=== PATIENT | female | born 1975 | race Caucasian/White ===

== ENCOUNTER 2019-12-26 21:14 | Inpatient (IN) | payer OTHER ==
[~2019-12-26] VITALS: Ht 160 cm; Wt 42.6 kg
[2019-12-26 21:14] VITALS: BP_SYST 98
[2019-12-26] MEDS ORDERED: HYDR-4274 PO (22:01)
[2019-12-26] MEDS ORDERED: OMEP20CA11 PO (22:01)
[2019-12-26] MEDS ORDERED: DOCU-144 PO (22:01)
[2019-12-26] MEDS ORDERED: ASCO500T20 PO (22:01)
[2019-12-26] MEDS ORDERED: MULT-1100 PO (22:01)
[2019-12-26] MEDS ORDERED: PHEN30TA41 PO (22:01)
[2019-12-26] MEDS ORDERED: ACET-2165 PO (22:01)
[2019-12-26] MEDS ORDERED: FERR-69 PO (22:01)
[2019-12-26] MEDS ORDERED: LISI-600 PO (22:01)
[2019-12-26] MEDS ORDERED: ALBMDI INH (22:01)
[2019-12-26] MEDS ORDERED: NA P133E41 RC (22:01)
[2019-12-26] MEDS ORDERED: VITD400 PO (22:01)
[2019-12-26] MEDS ORDERED: ATII2 INJ (22:01)
[2019-12-26] MEDS ORDERED: LORA1TAB PO (22:01)
[2019-12-26] MEDS ORDERED: OLAN5TAB26 PO (22:01)
[2019-12-26] MEDS ORDERED: PARO-41 PO (22:01)
[2019-12-26 22:07] LABS: BASOPHILS # (AUTO) 0.1 K/uL (0.0-0.2); BASOPHILS % (AUTO) 1.2 % (0.0-2.0); EOSINOPHILS # (AUTO) 0.2 K/uL (0.0-0.4); EOSINOPHILS % (AUTO) 3.1 % (0.0-4.0); HEMATOCRIT 33.5 % (36-48); HEMOGLOBIN 11.5 g/dL (12.0-16.0); LYMPHOCYTES # (AUTO) 1.9 K/uL (1.0-5.5); LYMPHOCYTES % (AUTO) 34.9 % (20.5-51.5); MEAN CORPUSCULAR HEMOGLOBIN 33 pg (27-31); MEAN CORPUSCULAR HGB CONC 34 % (32-36); MEAN CORPUSCULAR VOLUME 96 fL (79.0-98.0); MONOCYTES # (AUTO) 0.5 K/uL (0.0-1.0); MONOCYTES % (AUTO) 9.9 % (1.7-9.3); NEUTROPHILS # (AUTO) 2.7 K/uL (1.8-7.7); NEUTROPHILS % (AUTO) 50.9 % (40.0-70.0); PLATELET COUNT (AUTO) 332 K/uL (130-430); RED BLOOD CELL COUNT(AUTO) 3.48 MIL/uL (4.2-6.2); RED CELL DISTRIBUTION WIDTH 15.6 % (9.0-15.0); WHITE BLOOD COUNT (AUTO) 5.4 K/uL (4.8-10.8)
[2019-12-26 22:18] LABS: ANION GAP 4 (5-15); CALCIUM 7.9 mg/dL (8.4-11.0); CHLORIDE 106 mmol/L (98-107); CREATININE 0.59 mg/dL (0.55-1.30); GLUCOSE 106 mg/dL (70-99); POTASSIUM 3.4 mmol/L (3.5-5.1); SODIUM SERUM 141 mmol/L (136-145); UREA NITROGEN, BLOOD 20 mg/dL (8-21)
[2019-12-26 22:19] LABS: GFR AFRICAN AMERICAN 142 mL/min (>90)
[2019-12-26 22:59] LABS: ALANINE AMINOTRANSFERASE 26 U/L (12-78); ASPARTATE AMINOTRANSFERASE 22 U/L (10-37)
[2019-12-26 23:00] LABS: ACETAMINOPHEN 5 ug/mL (1-30); ALBUMIN 2.6 g/dL (3.4-4.8); ALCOHOL, BLOOD < 3 mg/dL (<10)
[2019-12-26 23:11] LABS: BILIRUBIN,URINE NEGATIVE (NEGATIVE); BLOOD, URINE NEGATIVE (NEGATIVE); CLARITY/URINE CLEAR (CLEAR); COLOR,URINE YELLOW (YELLOW); GLUCOSE,URINE NEGATIVE (NEGATIVE); KETONES,URINE NEGATIVE (NEGATIVE); LEUKOCYTE ESTERASE ,URINE NEGATIVE (NEGATIVE); NITRITE, URINE NEGATIVE (NEGATIVE); PH,URINE 5.5 (5.0-8.0); PROTEIN URINE NEGATIVE (NEGATIVE); UROBILINOGEN,URINE 0.2 (0.2-1.0)
[2019-12-26 23:14] LABS: TOTAL BILIRUBIN 0.2 mg/dL (0.0-1.0)
[2019-12-26 23:32] LABS: BARBITURATE, URINE POSITIVE (NEG <=200); BENZODIAZEPINE, URINE POSITIVE (NEG <=150); CANNABINOID, URINE NEGATIVE (NEG <=50); COCAINE, URINE NEGATIVE (NEG <=150); METHAMPHETAMINES SCREEN,URINE NEGATIVE (NEG <=500); OPIATE, URINE POSITIVE (NEG <=100); PHENCYCLIDINE SCREEN,URINE NEGATIVE (NEG <=25); UR TRICYCLIC ANTIDEPRESSANTS NEGATIVE (NEG <=300); URINE AMPHETAMINE NEGATIVE (NEG <=500); URINE METHADONE NEGATIVE (NEG <=200); URINE OXYCODONE SCREEN NEGATIVE (NEG <=100); URINE PROPOXYPHENE SCREEN NEGATIVE (NEG <=300)
[2019-12-27] MEDS ORDERED: DIPHENHYDRAMINE INJ 50 MG/ML VIAL IM ONE (12:00)
[2019-12-27] MEDS ORDERED: LORazepam 2 MG/ML VIAL IM ONE ×2 (12:00→20:00)
[2019-12-28] MEDS ORDERED: LORazepam 2 MG/ML VIAL IV PRN (13:30)
[2019-12-28] MEDS ORDERED: ACETAMINOPHEN 325 MG TABLET PO PRN (13:30)
[2019-12-28] MEDS ORDERED: ALBUTEROL SULFATE 0.083% 2.5 MG/3 ML VIAL.NEB INH PRN (13:30)
[2019-12-28] MEDS ORDERED: SODIUM PHOSPHATE,MONO-DIBASIC 133 ML ENEMA RC PRN (13:30)
[2019-12-28] MEDS ORDERED: PHENobarbital 30 MG TABLET PO PRN (13:30)
[2019-12-28 13:58] VITALS: BP_SYST 120
[2019-12-28 14:54] VITALS: BP_SYST 120
[2019-12-28] MEDS: LORazepam 2 MG/ML VIAL IV PRN ×2 (16:53→20:00)
[2019-12-28 20:00] VITALS: BP_SYST 97
[2019-12-28] MEDS: DOCUSATE SODIUM 100 MG CAPSULE PO SCH (20:00)
[2019-12-28] MEDS: HYDROcodone/ACETAMIN 10-325 MG TAB PO PRN (20:06)
[2019-12-28] MEDS ORDERED: OLANZapine 5 MG TABLET PO SCH (21:00)
[2019-12-29] MEDS: ONDANSETRON HCL 4 MG/2 ML VIAL IVP PRN ×3 (00:58→18:30)
[2019-12-29] MEDS: LORazepam 2 MG/ML VIAL IV PRN ×5 (00:58→21:11)
[2019-12-29] MEDS: HYDROcodone/ACETAMIN 10-325 MG TAB PO PRN ×3 (02:15→14:27)
[2019-12-29 04:00] VITALS: BP_SYST 114
[2019-12-29 06:41] LABS: BASOPHILS # (AUTO) 0.1 K/uL (0.0-0.2); BASOPHILS % (AUTO) 1.1 % (0.0-2.0); EOSINOPHILS # (AUTO) 0.1 K/uL (0.0-0.4); EOSINOPHILS % (AUTO) 2.4 % (0.0-4.0); HEMATOCRIT 33.6 % (36-48); HEMOGLOBIN 11.4 g/dL (12.0-16.0); LYMPHOCYTES # (AUTO) 1.9 K/uL (1.0-5.5); LYMPHOCYTES % (AUTO) 35.1 % (20.5-51.5); MEAN CORPUSCULAR HEMOGLOBIN 33 pg (27-31); MEAN CORPUSCULAR HGB CONC 34 % (32-36); MEAN CORPUSCULAR VOLUME 97 fL (79.0-98.0); MONOCYTES # (AUTO) 0.7 K/uL (0.0-1.0); MONOCYTES % (AUTO) 12.8 % (1.7-9.3); NEUTROPHILS # (AUTO) 2.7 K/uL (1.8-7.7); NEUTROPHILS % (AUTO) 48.6 % (40.0-70.0); PLATELET COUNT (AUTO) 340 K/uL (130-430); RED BLOOD CELL COUNT(AUTO) 3.45 MIL/uL (4.2-6.2); RED CELL DISTRIBUTION WIDTH 15.5 % (9.0-15.0); WHITE BLOOD COUNT (AUTO) 5.5 K/uL (4.8-10.8)
[2019-12-29 07:04] LABS: ALBUMIN 2.8 g/dL (3.4-4.8); CALCIUM 8.3 mg/dL (8.4-11.0); CREATININE 0.56 mg/dL (0.55-1.30); POTASSIUM 3.7 mmol/L (3.5-5.1); TOTAL BILIRUBIN 0.2 mg/dL (0.0-1.0)
[2019-12-29 08:00] VITALS: BP_SYST 101
[2019-12-29] MEDS ORDERED: QUEtiapine FUMARATE 25 MG TABLET PO SCH (09:00)
[2019-12-29] MEDS: LISINOPRIL 10 MG TABLET (PRINIVIL) PO SCH (09:00)
[2019-12-29] MEDS: ZIPRASIDONE HCL 20 MG CAPSULE (GEODON) PO SCH ×2 (09:00→21:00)
[2019-12-29] MEDS: DOCUSATE SODIUM 100 MG CAPSULE PO SCH ×2 (09:51→21:00)
[2019-12-29] MEDS: PANTOPRAZOLE SODIUM 40 MG TAB PO SCH (09:51)
[2019-12-29] MEDS: PARoxetine HCL 20 MG TABLET PO SCH (09:52)
[2019-12-29] MEDS: MULTIVITS,CA,MINERALS/IRON/FA 1 TABLET PO SCH (09:52)
[2019-12-29] MEDS: FERROUS SULFATE 325 MG TABLET.DR PO SCH (09:52)
[2019-12-29] MEDS: ASCORBIC ACID 500 MG TABLET PO SCH (09:52)
[2019-12-29] MEDS: CHOLECALCIFEROL (VITAMIN D-3) 400 UNIT TABLET PO SCH (09:52)
[2019-12-29 12:00] VITALS: BP_SYST 113
[2019-12-29] MEDS: MORPHINE 2 MG/ML INJ. SYRINGE IVP PRN ×2 (12:04→18:30)
[2019-12-29 16:06] VITALS: BP_SYST 104
[2019-12-29 20:00] VITALS: BP_SYST 102
[2019-12-30 03:06] VITALS: BP_SYST 115
[2019-12-30] MEDS: ONDANSETRON HCL 4 MG/2 ML VIAL IVP PRN (03:08)
[2019-12-30] MEDS: MORPHINE 2 MG/ML INJ. SYRINGE IVP PRN (03:10)
[2019-12-30] MEDS: LORazepam 2 MG/ML VIAL IV PRN ×2 (04:25→09:21)
[2019-12-30 08:00] VITALS: BP_SYST 115
[2019-12-30] MEDS: ASCORBIC ACID 500 MG TABLET PO SCH (08:46)
[2019-12-30] MEDS: CHOLECALCIFEROL (VITAMIN D-3) 400 UNIT TABLET PO SCH (08:47)
[2019-12-30] MEDS: LORazepam 1 MG TABLET PO PRN ×3 (08:47→11:29)
[2019-12-30] MEDS: DOCUSATE SODIUM 100 MG CAPSULE PO SCH (08:48)
[2019-12-30] MEDS: LISINOPRIL 10 MG TABLET (PRINIVIL) PO SCH (08:48)
[2019-12-30] MEDS: FERROUS SULFATE 325 MG TABLET.DR PO SCH (08:48)
[2019-12-30] MEDS: MULTIVITS,CA,MINERALS/IRON/FA 1 TABLET PO SCH ×2 (08:55→12:49)
[2019-12-30] MEDS: ZIPRASIDONE HCL 20 MG CAPSULE (GEODON) PO SCH ×2 (08:55→12:48)
[2019-12-30] MEDS: PANTOPRAZOLE SODIUM 40 MG TAB PO SCH ×2 (08:55→12:49)
[2019-12-30] MEDS: PARoxetine HCL 20 MG TABLET PO SCH ×2 (08:56→12:48)
[2019-12-30] MEDS: HYDROcodone/ACETAMIN 10-325 MG TAB PO PRN (11:21)
[2019-12-30 12:09] VITALS: BP_SYST 95
[2019-12-30 13:36] VITALS: BP_SYST 95
== END 2019-12-30 15:00 | DRG 885 ==
LOC: SED 21:14 → STU 12-27 15:35 → SMU 12-28 12:55
PROVIDERS: ADMIT Internal Medicine Infectious Disease; ATTEND Internal Medicine Infectious Disease
DX: F25.9 Schizoaffective disorder, unspecified (principal); R45.851 Suicidal ideations; E44.0 Moderate protein-calorie malnutrition; E87.6 Hypokalemia; F32.9 Major depressive disorder, single episode, unspecified; F41.9 Anxiety disorder, unspecified; E86.0 Dehydration; G40.909 Epilepsy, unspecified, not intractable, without status epilepticus; I10 Essential (primary) hypertension; Z88.6 Allergy status to analgesic agent; Z88.8 Allergy status to other drugs, medicaments and biological substances; Z79.899 Other long term (current) drug therapy
CPT/HCPCS: 36415; 73030; 80053; 80307; 81003; 82140-TC; 85025; 96372; 99285; G0378; G0480; G0481; G0482; J1200; J2060; J2270; J2405